=== PATIENT | male | born 1950 | race Caucasian/White ===

== ENCOUNTER 2018-04-25 10:47 | Emergency (ER) | payer OTHER ==
[~2018-04-25] VITALS: Ht 175.3 cm; Wt 81.8 kg
[2018-04-25 11:38] VITALS: Ht 175.3 cm; Wt 81.8 kg
[2018-04-25 13:41] VITALS: BP 148/79
== END 2018-04-25 13:42 | disposition other institution (70) ==
LOC: D.ER 10:47
DX: R33.9 Retention of urine, unspecified (principal); N40.0 Benign prostatic hyperplasia without lower urinary tract symptoms

== ENCOUNTER 2019-07-26 07:54 | Emergency (ER) | payer OTHER ==
[~2019-07-26] VITALS: Ht 175.3 cm; Wt 77.3 kg
[2019-07-26 07:59] VITALS: Ht 175.3 cm; Wt 77.3 kg
[2019-07-26 08:26] LABS: BASOPHILS 0.2 % (0-2); HEMATOCRIT 33.2 % (42.0-54.0); HEMOGLOBIN 11.1 g/dL (13.5-17.5); IMMATURE GRANULOCYTES 0.5 % (0-5); LYMPHOCYTES 4.8 % (15-50); MCH 29.2 pg (26.0-34.0); MCHC 33.4 g/dL (31.0-37.0); MCV 87.4 fL (80.0-100.0); MEAN PLATELET VOLUME 9.5 fL (7.4-10.4); MONOCYTES 3.7 % (2-11); NEUTROPHILS 87.8 % (40-80); PLATELET COUNT 242 10x3/uL (130-400); RDW 12.9 % (11.5-14.5); WBC 14.2 10x3/uL (4.8-10.8)
[2019-07-26 08:45] LABS: ANION GAP 15.2 mmol/L (8-16); CALCIUM 8.4 mg/dL (8.5-10.1); CARBON DIOXIDE 26.2 mmol/L (21.0-32.0); CREATININE - SERUM 1.9 mg/dL (0.6-1.3); POTASSIUM - SERUM 5.4 mmol/L (3.5-5.1)
[2019-07-26 08:51] LABS: BILIRUBIN - TOTAL 0.74 mg/dL (0.2-1.3); PROTEIN - SERUM 7.9 g/dL (6.4-8.2)
[2019-07-26] MEDS ORDERED: ACETAMINOPHEN500 M1 PO (09:13)
[2019-07-26] MEDS ORDERED: ELIQUIS5 MG PO (09:14)
[2019-07-26] MEDS ORDERED: TEMOVATE30 GM TOPICAL (09:14)
[2019-07-26] MEDS ORDERED: VOLTAREN100 GM TOPICAL (09:14)
[2019-07-26] MEDS ORDERED: NEURONTIN 300300 MG PO (09:14)
[2019-07-26] MEDS ORDERED: REMERON15 MG PO ×2 (09:15→09:16)
[2019-07-26] MEDS ORDERED: LISINOPRIL20 MG PO (09:15)
[2019-07-26] MEDS ORDERED: ZOLOFT100 MG PO (09:16)
[2019-07-26] MEDS ORDERED: OMEPRAZOLE20 M1 PO (09:16)
[2019-07-26] MEDS ORDERED: CRESTOR10 MG PO (09:16)
[2019-07-26 09:17] LABS: C-REACTIVE PROTEIN 7.3 mg/dL (0.0-0.9); CKMB 1.6 U/L (0.0-3.6); CREATINE KINASE 152 UL (21-232); FERRITIN 176 ng/mL (3-244); MAGNESIUM - SERUM 1.8 mg/dL (1.8-2.4); PRO BNP 218 pg/mL (0-125); TROPONIN-I < 0.017 ng/mL (0.000-0.060)
[2019-07-26] MEDS ORDERED: VIAGRA100 MG PO (09:17)
[2019-07-26] MEDS ORDERED: FLOMAX0.4 MG PO (09:17)
[2019-07-26 09:57] LABS: NITRITE NEGATIVE (NEGATIVE); SPECIFIC GRAVITY 1.015 (1.005-1.020)
[2019-07-26 09:58] LABS: BILIRUBIN NEGATIVE (NEGATIVE); GLUCOSE NEGATIVE (NEGATIVE); KETONE NEGATIVE (NEGATIVE); UROBILINOGEN NORMAL (NORMAL)
[2019-07-26 14:25] VITALS: BP 120/72
== END 2019-07-26 14:29 | disposition other institution (70) ==
LOC: D.ER 07:54
PROVIDERS: Family Medicine
DX: J18.8 Other pneumonia, unspecified organism (principal); R09.02 Hypoxemia; Z11.59 Encounter for screening for other viral diseases; I10 Essential (primary) hypertension; R05 Cough